=== PATIENT | female | born 1960 | race Two or more races ===

== ENCOUNTER 2020-06-30 06:32 | Day surgery (SDC) | payer OTHER | END 2020-06-30 11:20 | disposition home or self-care (01) | LOC: AMB-ENDOS 06:32 | PROVIDERS: ATTEND Surgery | DX: K62.89 Other specified diseases of anus and rectum (principal); Z20.822 Contact with and (suspected) exposure to COVID-19; Z12.11 Encounter for screening for malignant neoplasm of colon ==

== ENCOUNTER 2020-07-29 16:27 | Inpatient (IN) | payer OTHER ==
[~2020-07-29] VITALS: Ht 160 cm; Wt 70.3 kg
[~2020-07-29 16:27] MED LIST: ATIVAN0.5 M1 PO; ATORVASTATIN CA20 MG PO; ESTAZOLAM2 MG PO; FARXIGA10 MG PO; FORTAMET1000 MG PO; JANUVIA100 MG PO; OMEPRAZ PO; VASOTEC5 MG PO; WELLBUTRIN SR150 MG PO
[2020-08-06] MEDS ORDERED: OMEPRAZOLE20 MG (08:59)
[2020-08-09] MEDS ORDERED: ULTRAM50 MG PO (12:48)
== END 2020-08-09 16:25 | disposition home or self-care (01) | DRG 331 ==
LOC: SURG 08-06 05:30 → O/R 08-06 05:30 → SURH 08-06 11:00 → SURG 08-06 13:17
PROVIDERS: ADMIT Surgery; ATTEND Surgery
PROC: 0DTN0ZZ Resection of Sigmoid Colon, Open Approach (ICD-10-PCS; 2020-08-06)
PROC: 3E0F7SF Introduction of Other Gas into Respiratory Tract, Via Natural or Artificial Opening (ICD-10-PCS; 2020-08-06)
PROC: 0DTP0ZZ Resection of Rectum, Open Approach (ICD-10-PCS; principal; 2020-08-06 11:00)
DX: K57.20 Diverticulitis of large intestine with perforation and abscess without bleeding (principal); G47.33 Obstructive sleep apnea (adult) (pediatric); K21.9 Gastro-esophageal reflux disease without esophagitis; I10 Essential (primary) hypertension; R19.4 Change in bowel habit; R10.32 Left lower quadrant pain